=== PATIENT | female | born 1985 | race Caucasian/White ===

== ENCOUNTER 2024-09-04 19:26 | Emergency (ER) | payer BC ==
[2024-09-04 19:36] VITALS: TEMP 96.8; O2SAT 99
[2024-09-04] MEDS ORDERED: TORAdol 30 mg Injection ONE (19:56)
[2024-09-04] MEDS ORDERED: Augmentin 875-125 Tablet ONE (19:56)
[2024-09-04] MEDS ORDERED: TYLENOL 325 MG ONE (19:56)
[2024-09-04] MEDS: TYLENOL 325 MG PO ONE (19:57)
[2024-09-04] MEDS: Augmentin 875-125 Tablet PO ONE (19:57)
--- NOTE | 2024-09-04 19:57 | ERPHSYRPT ---
- History of Present Illness Time Seen by Provider: 09/04/24 19:56 Source: patient Exam Limitations: no limitations Patient Subjective Stated Complaint: toothache to back lower tooth and I can't get into a dentist until 09/27/24 Triage Nursing Assessment: Pt ambulated into ER without diff, c/o toothache to lower left back tooth since 08/08/24. Pt cannot get into a dentist until 09/27/24 and did not have insurance until last week. Dental caries noted to left lower back tooth (1 tooth before last tooth). Pt c/o whole left side of mouth hurting at this time. Physician History: 38-year-old female presents to our ED with complaints of dental pain tooth #17. Patient states symptoms started approximately 2 months ago. Patient has not been able to see a dentist due to lack of insurance. Patient acquired insurance last week. She currently has an appointment scheduled for 27 September. Patient states she cannot wait that long. Pain described as an ache that is localized to the left lower molar tooth #17. No trauma no fever no headache no nausea no vomiting. Patient able to tolerate her oral secretions. Symptoms are mild to moderate in intensity. Pain worse with mastication and palpation. Pain improved with rest. Patient otherwise feels well. She voices no other complaints or concerns at this time. Portions of this note were created with voice recognition technology. There may be grammatical, spelling, punctuation or sound alike errors Timing/Duration: week(s) (2 months) Severity: moderate Modifying Factors: Improves With: other (Mastication and percussion to the involved tooth) Associated Symptoms: denies symptoms Allergies/Adverse Reactions: codeine Adverse Reaction (Intermediate, Verified 09/04/24 19:43) Tightness in Chest Hx Tetanus, Diphtheria Vaccination/Date Given: Yes Hx Influenza Vaccination/Date Given: No Hx Pneumococcal Vaccination/Date Given: No Travel Risk - International Travel Have you traveled outside of the country in past 3 weeks: No - Emerging Infectious Disease Are you exhibiting symptoms associated with any current EIDs: No - Review of Systems Constitutional: No Symptoms, No Fever, No Chills Eyes: No Symptoms Ears, Nose, & Throat: No Symptoms Respiratory: No Symptoms, No Cough, No Dyspnea Cardiac: No Symptoms, No Chest Pain, No Edema, No Syncope Abdominal/Gastrointestinal: No Symptoms, No Abdominal Pain, No Nausea, No Vomiting, No Diarrhea Genitourinary Symptoms: No Symptoms, No Dysuria Musculoskeletal: No Symptoms, No Back Pain, No Neck Pain Skin: No Symptoms, No Rash Neurological: No Symptoms, No Dizziness, No Focal Weakness, No Sensory Changes Psychological: No Symptoms Endocrine: No Symptoms Hematologic/Lymphatic: No Symptoms Immunological/Allergic: No Symptoms All Other Systems: Reviewed and Negative - Past Medical History Pertinent Past Medical History: Yes Neurological History: No Pertinent History, Migraines ENT History: No Pertinent History Cardiac History: High Cholesterol Endocrine Medical History: Diabetes Type II - Past Surgical History Past Surgical History: Yes Gastrointestinal: Appendectomy Female Surgical History: Hysterectomy, Dilation & Curettage, Section, Other Other Surgical History: PFO repair x2, ovarian cysts removed, cyst removed x2 to rt wrist - Female History Hx Now: No - Social History Smoking Status: Former smoker Exposure to second hand smoke: No Drug Use: none - Social Determinants of Health Will the patient participate in the screening: Yes Do you worry about a steady place to live?: No Do you have any problems with any of the following?: No known problems In the past 12 months,have you had to go without utilities?: No Transportation Issues: No Has anyone in your support network made you feel unsafe?: No Have you or anyone in your house had to go without enough: No - Nursing Vital Signs Nursing Vital Signs: Initial Vital Signs Temperature 96.8 F 09/04/24 19:35 Pulse Rate 100 H 09/04/24 19:35 Respiratory Rate 17 09/04/24 19:35 Blood Pressure 165/102 09/04/24 19:35 O2 Sat by Pulse Oximetry 99 09/04/24 19:35 Pain Scale Pain Intensity 10 - Physical Exam General Appearance: no apparent distress, alert Eye Exam: PERRL/EOMI, eyes nml inspection Ears, Nose, Throat Exam: normal ENT inspection, pharynx normal, moist mucous membranes, other (Gingiva adjacent to tooth #17 is tender red swollen.) Neck Exam: normal inspection, non-tender, supple, full range of motion Respiratory Exam: normal breath sounds, airway intact, No respiratory distress Gastrointestinal/Abdomen Exam: No tenderness, No mass Back Exam: normal inspection, normal range of motion, No CVA tenderness, No vertebral tenderness Neurologic Exam: alert, oriented x 3, cooperative, normal mood/affect, sensation nml, No motor deficits Skin Exam: normal color, warm, dry, No rash Lymphatic Exam: No adenopathy SpO2 Interpretation: normal SpO2: 99 O2 Delivery: Room Air - Course Nursing assessment & vital signs reviewed: Yes - Progress Progress: improved Progress Note: 38-year-old female presents to emergency department for evaluation of dental pain. Physical exam reveals what appears to be a dental abscess. Patient received a dose of Augmentin and an IM dose of Toradol in our ED. Patient is not concerned with as she had a hysterectomy. Patient reassessed. Pain improved. Vital stable. A prescription for Toradol and Augmentin forwarde d to patient's pharmacy. Patient is allergic to codeine. Patient will follow- up with her dentist as planned. She voices no other complaints or concerns at this time. Portions of this note were created with voice recognition technology. There may be grammatical, spelling, punctuation or sound alike errors Complexity of problem addressed is moderate acute complicated. No critical care time. Complex of data reviewed and analyzed is none. No specialized testing ordered. Diagnosis made based on history and physical exam. Risk of complication and or risk of morbidity/mortality of patient management is moderate. Patient received IM Toradol and Augmentin in our ED. PATIENT ALSO RECEIVED A GRAM OF TYLENOL P.O. A prescription for the same forwarded to patient's pharmacy. Vital stable. Time spent to discharge patient approximately 10 minutes. Plan of care established for shared decision making. No social determinants of health present to impede follow-up. Portions of this note were created with voice recognition technology. There may be grammatical, spelling, punctuation or sound alike errors 09/04/24 19:59 Counseled pt/family regarding: diagnosis, need for follow-up - Departure Departure Disposition: Home Clinical Impression: Dental abscess, Pain, dental Condition: Stable Critical Care Time: No Instructions: Dental Pain (DC), Tooth Abscess (DC) Additional Instructions: Discharge/Care Plan BRANDON ZUNIGA was seen on 09/04/24 in the Emergency Room. The patient was counseled regarding Diagnosis,Lab results, Imaging studies, need for follow up and when to return to the Emergency Room. Prescriptions given: Discharge Note I have spoken with the patient and/or caregivers. I have explained the patient's condition, diagnosis and treatment plan based on the information available to me at this time. I have answered the patient's and/or caregiver's questions and addressed any concerns. The patient and/or caregivers have as good understanding of the patient's diagnosis, condition and treatment plan as can be expected at this point. The vital signs have been stable. The patient's condition is stable and appropriate for discharge from the emergency department. The patient will pursue further outpatient evaluation with the primary care physician or other designated or consulting physician as outlined in the discharge instructions. The patient and/or caregivers are agreeable to this plan of care and follow-up instructions have been explained in detail. The patient and/or caregivers have received these instruction. The patient/and or caregivers are aware that any significant change in condition or worsening of symptoms should prompt an immediate return to this or the closest emergency department or call 911. Prescriptions: Amox Tr/Potass Clav. 875 mg [Augmentin 875-125 Tablet] 875 mg PO BID 7 Days #14 tablet Ketorolac Trometh 10 mg Tab [TORAdol 10 MG TABLET] 10 mg PO TID 5 Days #15 tablet
[2024-09-04] MEDS: TORAdol 30 mg Injection IM ONE (19:58)
[2024-09-04 20:07] VITALS: BP 151/85; PULSE 98; RESP 16
== END 2024-09-04 20:19 | disposition home or self-care (01) ==
LOC: ED 19:26
DX: K04.7 Periapical abscess without sinus (principal); K08.89 Other specified disorders of teeth and supporting structures; E78.5 Hyperlipidemia, unspecified; E11.9 Type 2 diabetes mellitus without complications; Z79.899 Other long term (current) drug therapy
CPT/HCPCS: 96372; 99283; J1885; A9270-GY

== ENCOUNTER 2024-10-15 20:30 | Emergency (ER) | payer BC ==
[2024-10-15 21:06] VITALS: TEMP 97.1
--- NOTE | 2024-10-15 21:26 | ERPHSYRPT ---
- History of Present Illness Time Seen by Provider: 10/15/24 21:20 Source: patient Exam Limitations: no limitations Patient Subjective Stated Complaint: pt states that she has been having chest pain since this morning. pt states she thought it was heart burn and has been e ating [facility] Triage Nursing Assessment: pt ambulated into the er; pt is axo x4; c/o chest pain; pt states 8/10 pain to chest; pt states pain radiates from left shoulder to left neck and chest; clear apical heart tone; clear lung sounds in all lobes; strong arnie radial pulses; strong arnie pedal pulses; hypertensive Timing/Duration: today Severity: mild Associated Symptoms: denies symptoms Allergies/Adverse Reactions: codeine Adverse Reaction (Intermediate, Verified 10/15/24 20:31) Tightness in Chest Home Medications: Amoxicillin 500 mg PO TID 10/15/24 [History] Evolocumab [Repatha Syringe] 1 ml SQ UD 10/15/24 [History] Hydrocodone/Acetaminophen [Hydrocodone-Acetamin 5-325 mg] 1 tab PO TID 10/15/24 [History] Insulin Aspart [Novolog] 1 unit SQ DAILY 10/15/24 [History] Insulin Glargine [Lantus Insulin] 1 unit SQ BID 10/15/24 [History] lisinopriL [Lisinopril] 2.5 mg PO DAILY 10/15/24 [History] Hx Tetanus, Diphtheria Vaccination/Date Given: Yes Hx Influenza Vaccination/Date Given: No Hx Pneumococcal Vaccination/Date Given: No Travel Risk - International Travel Have you traveled outside of the country in past 3 weeks: No - Emerging Infectious Disease Are you exhibiting symptoms associated with any current EIDs: No - Past Medical History Pertinent Past Medical History: Yes Neurological History: No Pertinent History, Migraines ENT History: No Pertinent History Cardiac History: High Cholesterol Endocrine Medical History: Diabetes Type II Psycho-Social History: Anxiety - Past Surgical History Past Surgical History: Yes Gastrointestinal: Appendectomy Female Surgical History: Hysterectomy, Dilation & Curettage, Section, Other Other Surgical History: PFO repair x2, ovarian cysts removed, cyst removed x2 to rt wrist - Female History Hx Now: No - Social History Smoking Status: Former smoker Exposure to second hand smoke: Yes Drug Use: other - Social Determinants of Health Will the patient participate in the screening: Yes Do you worry about a steady place to live?: No Do you have any problems with any of the following?: No known problems In the past 12 months,have you had to go without utilities?: No Transportation Issues: No Has anyone in your support network made you feel unsafe?: No Have you or anyone in your house had to go w/o enough food: No - Nursing Vital Signs Nursing Vital Signs: Initial Vital Signs Temperature 97.1 F 10/15/24 20:36 Pulse Rate 106 H 10/15/24 20:36 Respiratory Rate 20 10/15/24 20:36 Blood Pressure 166/82 10/15/24 20:36 O2 Sat by Pulse Oximetry 98 10/15/24 20:36 Pain Scale Pain Intensity 7 - Physical Exam General Appearance: no apparent distress Eye Exam: PERRL/EOMI Ears, Nose, Throat Exam: normal ENT inspection Respiratory Exam: normal breath sounds Cardiovascular Exam: regular rate/rhythm Gastrointestinal/Abdomen Exam: soft, normal bowel sounds SpO2: 98 Ordered Tests: Active Orders 24 hr Category Date Time Status ABDOMEN AND PELVIS W CONTRAST [CT] Stat Exams 10/15/24 22:44 Completed CHEST 1 VIEW (PORTABLE) Stat Exams 10/15/24 21:26 Taken CHEST WITH CONTRAST [CT] Stat Exams 10/15/24 22:44 Completed CBC W DIFF Stat Lab 10/15/24 21:42 Completed CMP Stat Lab 10/15/24 21:42 Completed HCG QUALITATIVE, SERUM Stat Lab 10/15/24 22:00 Completed LIPASE Stat Lab 10/15/24 21:42 Completed TROPONIN Q4H Lab 10/15/24 21:42 Completed TROPONIN Q4H Lab 10/16/24 01:32 Received TROPONIN Q4H Lab 10/16/24 05:30 Ordered Lab/Rad Data: Laboratory Result Diagrams 10/15/24 21:42 10/15/24 21:42 Laboratory Results 10/15/24 10/15/24 10/15/24 Range/Units 22:00 21:42 21:42 WBC (3.98-10.04) x10^3/uL RBC (3.93-5.22) x10^6/uL Hgb (11.2-15.7) g/dL Hct (34.1-44.9) % MCV (79.4-94.8) fL MCH (25.6-32.2) pg MCHC (32.2-35.5) g/dL RDW (11.7-14.4) % Plt Count (182-369) x10^3/uL MPV (9.4-12.3) fL Gran % (34.0-71.1) % Immature Gran % (Auto) (0.001-0.429) % Nucleat RBC Rel Count (0.00-0.2) % Eos # (Auto) (0.04-0.36) x10^3/uL Immature Gran # (Auto) (0.001-0.031) x10^3u/L Absolute Lymphs (auto) (1.18-3.74) x10^3/uL Absolute Monos (auto) (0.24-0.86) x10^3/uL Absolute Nucleated RBC (0.00-0.012) x10^3u/L Lymphocytes % (19.3-51.7) % Monocytes % (4.7-12.5) % Eosinophils % (0.7-5.8) % Basophils % (0.1-1.2) % Absolute Granulocytes (1.56-6.13) x10^3/uL Basophils # (0.01-0.08) x10^3/uL Sodium 136 (135-145) mmol/L Potassium 4.0 (3.5-5.1) mmol/L Chloride 104 (98-107) mmol/L Carbon Dioxide 20 L (22-30) mmol/L Anion Gap 15.6 H (5-15) MEQ/L BUN 11 (7-17) mg/dL Creatinine 0.58 (0.52-1.04) mg/dL Estimated GFR 118.0 ML/MIN Glucose 224 H (74-106) mg/dL Calcium 8.9 (8.4-10.2) mg/dL Total Bilirubin 0.60 (0.2-1.3) mg/dL AST 30 (14-36) U/L ALT 29 (0-35) U/L Alkaline Phosphatase 89 (38-126) U/L Troponin I < 0.012 (0.000-0.033) ng/mL Serum Total Protein 6.4 (6.3-8.2) g/dL Albumin 3.8 (3.5-5.0) g/dL Lipase 507 H (23-300) U/L Serum HCG, Qual NEGATIVE (NEGATIVE) 10/15/24 Range/Units 21:42 WBC 9.5 (3.98-10.04) x10^3/uL RBC 4.63 (3.93-5.22) x10^6/uL Hgb 13.8 (11.2-15.7) g/dL Hct 38.7 (34.1-44.9) % MCV 83.6 (79.4-94.8) fL MCH 29.8 (25.6-32.2) pg MCHC 35.7 H (32.2-35.5) g/dL RDW 13.1 (11.7-14.4) % Plt Count 257 (182-369) x10^3/uL MPV 9.3 L (9.4-12.3) fL Gran % 59.3 (34.0-71.1) % Immature Gran % (Auto) 0.2 (0.001-0.429) % Nucleat RBC Rel Count 0.0 (0.00-0.2) % Eos # (Auto) 0.07 (0.04-0.36) x10^3/uL Immature Gran # (Auto) 0.02 (0.001-0.031) x10^3u/L Absolute Lymphs (auto) 3.35 (1.18-3.74) x10^3/uL Absolute Monos (auto) 0.39 (0.24-0.86) x10^3/uL Absolute Nucleated RBC 0.00 (0.00-0.012) x10^3u/L Lymphocytes % 35.4 (19.3-51.7) % Monocytes % 4.1 L (4.7-12.5) % Eosinophils % 0.7 (0.7-5.8) % Basophils % 0.3 (0.1-1.2) % Absolute Granulocytes 5.60 (1.56-6.13) x10^3/uL Basophils # 0.03 (0.01-0.08) x10^3/uL Sodium (135-145) mmol/L Potassium (3.5-5.1) mmol/L Chloride (98-107) mmol/L Carbon Dioxide (22-30) mmol/L Anion Gap (5-15) MEQ/L BUN (7-17) mg/dL Creatinine (0.52-1.04) mg/dL Estimated GFR ML/MIN Glucose (74-106) mg/dL Calcium (8.4-10.2) mg/dL Total Bilirubin (0.2-1.3) mg/dL AST (14-36) U/L ALT (0-35) U/L Alkaline Phosphatase (38-126) U/L Troponin I (0.000-0.033) ng/mL Serum Total Protein (6.3-8.2) g/dL Albumin (3.5-5.0) g/dL Lipase (23-300) U/L Serum HCG, Qual (NEGATIVE) - Progress Progress Note: Patient was seen and evaluated for chest pain labs were obtained chest x-ray was ordered her lipase is elevated at 507 CT of the chest abdomen pelvis will be ordered patient has no further questions at this time, she was updated with the results of the labs and current plan 10/15/24 22:46 10/16/24 01:39 Patient was updated with her results she is still complaining of nonspecific chest discomfort CT chest was obtained CT abdomen pelvis was obtained this revealed ct chest reveals no acute pathology ct abdomen and pelvis reveals IMPRESSION: No evidence of acute intra-abdominal pathology. Clinical correlation is recommended for further evaluation. No radiologic evidence of acute pancreatitis. Right ovarian cyst for ultrasound correlation. Patient was updated with the results she was informed of the need for follow-up with her primary care provider she was informed of the need to start a clear liquid diet and advance slowly he has no chest pain at the time of discharge She was informed of the need for outpatient pelvic ultrasound . Medical Desision Making - Discussion of managment Agreed on:: need for follow-up Will see patient: In office - Departure Departure Disposition: Home Clinical Impression: Chest pain, Acute pancreatitis, Ovarian cyst Condition: Stable Critical Care Time: No Referrals: JANNY PEREIRA MD [Primary Care Provider] - Follow up/PCP as directed
[2024-10-15 21:44] LABS: BASOPHIL % 0.3 % (0.1-1.2); Basophil (Absolute #) 0.03 x10^3/uL (0.01-0.08); Eosinophil % 0.7 % (0.7-5.8); Eosinophil (Absolute #) 0.07 x10^3/uL (0.04-0.36); Hematocrit 38.7 % (34.1-44.9); Hemoglobin 13.8 g/dL (11.2-15.7); IMMATURE GRAN # 0.02 x10^3u/L (0.001-0.031); IMMATURE GRAN % 0.2 % (0.001-0.429); Lymphocyte (Absolute #) 3.35 x10^3/uL (1.18-3.74); Lymphocytes % 35.4 % (19.3-51.7); Mean Cell Volume 83.6 fL (79.4-94.8); Mean Corpuscular Hemoglobin 29.8 pg (25.6-32.2); Mean Corpuscular Hgb Concent. 35.7 g/dL (32.2-35.5); Mean Platelet Volume 9.3 fL (9.4-12.3); Monocyte (Absolute #) 0.39 x10^3/uL (0.24-0.86); Monocytes % 4.1 % (4.7-12.5); Neutrophil % 59.3 % (34.0-71.1); Platelet Count 257 x10^3/uL (182-369); Red Blood Count 4.63 x10^6/uL (3.93-5.22); Red Cell Distribution Width 13.1 % (11.7-14.4); White Blood Count 9.5 x10^3/uL (3.98-10.04)
[2024-10-15 22:02] LABS: ALBUMIN 3.8 g/dL (3.5-5.0); ANION GAP 15.6 MEQ/L (5-15); BILIRUBIN,TOTAL 0.6 mg/dL (0.2-1.3); Calcium 8.9 mg/dL (8.4-10.2); Creatinine 1 0.58 mg/dL (0.52-1.04); Total Protein 6.4 g/dL (6.3-8.2)
[2024-10-15 22:56] LABS: HCG SERUM TEST NEGATIVE (NEGATIVE)
--- NOTE | 2024-10-16 01:00 | XRAY ---
CLINICAL HISTORY: abdominal pain r/o pancreatitis COMPARISON: No prior studies are available for comparison. TECHNIQUE: CT of the abdomen and pelvis was performed with contrast, with the following protocol: axial images with, and reconstructed coronal and sagittal images. One of the following dose reduction techniques was utilized for this exam: Automated exposure control, adjustment of the mA and/or kV according to patient size, and use of iterative reconstruction. FINDINGS: Abdomen: Liver: Normal in size, shape, and density. [place] liver tail(normal variant) is noted. No focal lesions, cysts, or masses were identified. Hepatic vasculature and biliary ducts are unremarkable. Gallbladder and Biliary System: The gallbladder is contracted at the time of the scan. No pericholecystic fluid or gallstones were identified. The common bile duct is normal in caliber without dilation. Pancreas: Pancreatic head, body, and tail are visualized and appear normal in size and density. No pancreatic masses or calcifications were noted. The pancreatic duct is not dilated. Spleen: Normal in size, shape, and density. No splenic lesions or masses were identified. Appendix: The appendix is not well visualized. Kidneys and Adrenal Glands: Both kidneys are normal in size, shape, and position. Cortical thickness is within normal limits. No renal calculi or hydronephrosis. Adrenal glands are unremarkable with no evidence of masses or hyperplasia. Pelvis: Urinary Bladder: Normal in contour and wall thickness. No intraluminal lesions were identified. Uterus: Normal in size and contour. No masses or abnormal thickening. Ovaries: A Right ovarian cyst measures 3.7 x 3 cm. No other gross abnormalities were noted. Vagina: Normal in contour and wall thickness. Cervix: No evidence of mass or abnormal thickening. Peritoneal and Retroperitoneal Structures: No free fluid or abnormal fluid collections were identified within the abdomen or pelvis. No lymphadenopathy was noted. Bowel: The visualized bowel loops are normal in caliber and appearance. No evidence of bowel obstruction or wall thickening. Bones and Soft Tissues: Pelvic bones and soft tissues are unremarkable. No fractures or abnormal masses were identified. IMPRESSION: No evidence of acute intra-abdominal pathology. Clinical correlation is recommended for further evaluation. No radiologic evidence of acute pancreatitis. Right ovarian cyst for ultrasound correlation. Electronically Signed by: Angela Ross MD. (10/16/2024 00:56:38 EDT)
--- NOTE | 2024-10-16 01:02 | XRAY ---
CLINICAL HISTORY: abdominal pain r/o pancreatitis COMPARISON: None TECHNIQUE: Contiguous 3.[address] images of the chest were acquired without intravenous contrast administration. Coronal and sagittal reconstructions were also obtained.One of the following dose reduction techniques was utilized for this exam.Automated exposure control, adjustment of the mA and/or kV according to patient size, and use of iterative reconstruction. FINDINGS: Both lungs are normally visualized. No consolidation or soft tissue nodularity was seen on either side. No bronchiectasis or mucus plugging was noted. No free or encysted pleural effusion. Heart size is normal, no pericardial effusion. No pathologically enlarged mediastinal, hilar, or axillary lymph node was identified. The great mediastinal vessels are normally opacified with contrast. No evidence of pulmonary embolism on current examination. There is no definite mass lesion in the chest wall. The visualized skeleton shows mild degenerative changes. Please refer to the CT abdomen for visceral details. IMPRESSION: No acute pulmonary pathology is identified. Electronically Signed by: Angela Ross MD. (10/16/2024 00:57:44 EDT)
[2024-10-16 01:39] VITALS: BP 100/75; PULSE 100; RESP 19
[2024-10-16 01:42] VITALS: O2SAT 98
--- NOTE | 2024-10-16 08:45 | XRAY ---
Indication: Chest pain. Comparison: None Portable chest inflated and clear. Heart not enlarged. Bony thorax intact. No acute findings.
== END 2024-10-16 02:03 | disposition home or self-care (01) ==
LOC: ED 20:30
DX: R07.9 Chest pain, unspecified (principal); K85.90 Acute pancreatitis without necrosis or infection, unspecified; N83.201 Unspecified ovarian cyst, right side; E78.5 Hyperlipidemia, unspecified; E11.9 Type 2 diabetes mellitus without complications; Z79.4 Long term (current) use of insulin; Z79.891 Long term (current) use of opiate analgesic; Z79.899 Other long term (current) drug therapy
CPT/HCPCS: 36415; 71045; 71260; 74177; 80053; 83690; 84484; 84703; 85025; 99284; 99285

== ENCOUNTER 2024-12-15 17:21 | Emergency (ER) | payer BC ==
[2024-12-15 17:34] VITALS: TEMP 98.8
--- NOTE | 2024-12-15 17:55 | ERPHSYRPT ---
- History of Present Illness Historian: patient Exam Limitations: no limitations Patient Subjective Stated Complaint: Pt states "It has been going on and off for the past two months but it started three days ago and will not stop. I feel like everything is being pushed up into my chest and I have this band around my lower chest upper belly and I am just being squeezed and I cannot breath." Triage Nursing Assessment: Pt presented alert and oriented X 3, skin pwd. Pt ambulates with an upright steady gait, able to speak in clear full sentences PT restting on bed unable to sit still. Physician History: Patient has abdominal pain. It is in her upper abdomen. It radiates to her back and she says down her abdomen a little bit down the back. She has a history of pancreatitis. She says deep breathing makes it worse and coughing and sneezing makes it worse as does walking. Pains been there for about 2 months it has becoming more intense over the last 2 to 3 days. She came in today because of the worsening of the symptoms. She does not have any vomiting at this time but does have some nausea. She is worried it may be her pancreas. She has had problems with pancreatitis in the past.The pain is distributed in the region of the diaphragm as well. Allergies/Adverse Reactions: codeine Adverse Reaction (Intermediate, Verified 10/15/24 20:31) Tightness in Chest Home Medications: Dapagliflozin Propanediol [Farxiga] 5 mg PO DAILY 12/15/24 [History] Evolocumab [Repatha Sureclick] 140 mg SQ DAILY 12/15/24 [History] Glucagon [Gvoke Hypopen 1-Pack] 12/15/24 [History] Insulin Glargine,Hum.rec.anlog [Touromina Solostar] 300 unit SQ DAILY 12/15/24 [History] Tirzepatide [Mounjaro] 2.5 mg SQ DAILY 12/15/24 [History] Hx Tetanus, Diphtheria Vaccination/Date Given: Yes Hx Influenza Vaccination/Date Given: No Hx Pneumococcal Vaccination/Date Given: No Immunizations Up to Date: No Travel Risk - International Travel Have you traveled outside of the country in past 3 weeks: No - Emerging Infectious Disease Are you exhibiting symptoms associated with any current EIDs: No - Review of Systems Constitutional: No Symptoms Eyes: No Symptoms Ears, Nose, & Throat: No Symptoms Respiratory: No Symptoms Cardiac: No Symptoms Abdominal/Gastrointestinal: Abdominal Pain Genitourinary Symptoms: No Symptoms Musculoskeletal: No Symptoms All Other Systems: Reviewed and Negative - Past Medical History Pertinent Past Medical History: Yes Neurological History: Migraines ENT History: No Pertinent History Cardiac History: High Cholesterol Endocrine Medical History: Diabetes Type II Psycho-Social History: Anxiety - Past Surgical History Past Surgical History: Yes Gastrointestinal: Appendectomy Female Surgical History: Hysterectomy, Dilation & Curettage, Section, Other Other Surgical History: PFO repair x2, ovarian cysts removed, cyst removed x2 to rt wrist - Female History Hx Last Menstrual Period: partial hysterectomy Hx Now: No - Social History Smoking Status: Former smoker Exposure to second hand smoke: Yes Drug Use: none - Social Determinants of Health Will the patient participate in the screening: Yes Do you worry about a steady place to live?: No Do you have any problems with any of the following?: No known problems In the past 12 months,have you had to go without utilities?: No Transportation Issues: No Has anyone in your support network made you feel unsafe?: No Have you or anyone in your house had to go w/o enough food: No - Nursing Vital Signs Nursing Vital Signs: Initial Vital Signs Temperature 98.8 F 12/15/24 17:29 Pulse Rate 96 H 12/15/24 17:29 Respiratory Rate 18 12/15/24 17:29 Blood Pressure 142/95 12/15/24 17:29 O2 Sat by Pulse Oximetry 99 12/15/24 17:29 Pain Scale Pain Intensity 10 - Physical Exam General Appearance: no apparent distress Eye Exam: PERRL/EOMI Respiratory Exam: normal breath sounds Cardiovascular Exam: regular rate/rhythm Gastrointestinal/Abdomen Exam: soft, tenderness (Mild tenderness in the upper abdomen otherwise benign exam) Pelvic Exam: not done Rectal Exam: deferred Back Exam: normal inspection Extremity Exam: normal inspection Neurologic Exam: alert, oriented x 3, cooperative Skin Exam: normal color, warm, dry SpO2: 99 - Course Nursing assessment & vital signs reviewed: Yes Ordered Tests: Active Orders 24 hr Category Date Time Status ABDOMEN AND PELVIS W CONTRAST [CT] Stat Exams 12/15/24 17:40 Taken CBC W DIFF Stat Lab 12/15/24 17:55 Completed CMP Stat Lab 12/15/24 17:55 Completed LIPASE Stat Lab 12/15/24 17:55 Completed Medication Summary Discontinued Medications Generic Name Dose Route Start Last Admin Trade Name Yvan PRN Reason Stop Dose Admin Hydromorphone HCl 1 mg 12/15/24 19:14 12/15/24 19:19 Hydromorphone 1 Mg/1ml Inj IV 12/15/24 19:15 Not Given STAT ONE Ketorolac Tromethamine 30 mg 12/15/24 19:19 12/15/24 19:21 Ketorolac Tromethamine 30 Mg/Ml Inj IV 12/15/24 19:20 30 mg STAT ONE Administration Ketorolac Tromethamine Confirm 12/15/24 19:20 Ketorolac Tromethamine 30 Mg/Ml Inj Administered 12/15/24 19:21 Dose 30 mg .ROUTE .STK-MED ONE Ondansetron HCl 4 mg 12/15/24 19:14 12/15/24 19:21 Ondansetron Hcl 4 Mg/2 Ml Vial IV 12/15/24 19:15 4 mg STAT ONE Administration Ondansetron HCl Confirm 12/15/24 19:20 Ondansetron Hcl 4 Mg/2 Ml Vial Administered 12/15/24 19:21 Dose 4 mg .ROUTE .STK-MED ONE Lab/Rad Data: Laboratory Result Diagrams 12/15/24 17:55 12/15/24 17:55 Laboratory Results 12/15/24 12/15/24 Range/Units 17:55 17:55 WBC 10.5 H (3.98-10.04) x10^3/uL RBC 4.72 (3.93-5.22) x10^6/uL Hgb 13.8 (11.2-15.7) g/dL Hct 39.9 (34.1-44.9) % MCV 84.5 (79.4-94.8) fL MCH 29.2 (25.6-32.2) pg MCHC 34.6 (32.2-35.5) g/dL RDW 12.5 (11.7-14.4) % Plt Count 238 (182-369) x10^3/uL MPV 8.8 L (9.4-12.3) fL Gran % 61.0 (34.0-71.1) % Immature Gran % (Auto) 0.3 (0.001-0.429) % Nucleat RBC Rel Count 0.0 (0.00-0.2) % Eos # (Auto) 0.11 (0.04-0.36) x10^3/uL Immature Gran # (Auto) 0.03 (0.001-0.031) x10^3u/L Absolute Lymphs (auto) 3.41 (1.18-3.74) x10^3/uL Absolute Monos (auto) 0.50 (0.24-0.86) x10^3/uL Absolute Nucleated RBC 0.00 (0.00-0.012) x10^3u/L Lymphocytes % 32.5 (19.3-51.7) % Monocytes % 4.8 (4.7-12.5) % Eosinophils % 1.0 (0.7-5.8) % Basophils % 0.4 (0.1-1.2) % Absolute Granulocytes 6.39 H (1.56-6.13) x10^3/uL Basophils # 0.04 (0.01-0.08) x10^3/uL Sodium 140 (135-145) mmol/L Potassium 3.6 (3.5-5.1) mmol/L Chloride 107 (98-107) mmol/L Carbon Dioxide 22 (22-30) mmol/L Anion Gap 15.7 H (5-15) MEQ/L BUN 16 (7-17) mg/dL Creatinine 0.64 (0.52-1.04) mg/dL Estimated GFR 114.5 ML/MIN Glucose 99 (74-106) mg/dL Calcium 9.9 (8.4-10.2) mg/dL Total Bilirubin 0.70 (0.2-1.3) mg/dL AST 37 H (14-36) U/L ALT 36 H (0-35) U/L Alkaline Phosphatase 79 (38-126) U/L Serum Total Protein 7.3 (6.3-8.2) g/dL Albumin 4.4 (3.5-5.0) g/dL Lipase 277 (23-300) U/L - Progress Progress: unchanged Progress Note: On the differential is pancreatitis, inflammation of the diaphragm, colitis,. Her CT showed no acute findings. Her labs all look good. At this point I do not think that further workup to be done in the ER. I am going to have her follow-up with her primary doctor and possible GI referral. I am going to give her some [place] for the next few days. 12/15/24 20:56 Medical Desision Making - Independent Historian Additional History obtained from: Spouse - Departure Departure Disposition: Home Clinical Impression: Abdominal pain Condition: Stable Critical Care Time: No Referrals: JANNY PEREIRA MD [Primary Care Provider, [facility]] - Follow up/PCP as directed Instructions: Severe Abdominal Pain, Adult (DC)
[2024-12-15 18:00] LABS: Absolute Neutrophil Ct (ANC) 6.39 x10^3/uL (1.56-6.13); BASOPHIL % 0.4 % (0.1-1.2); Basophil (Absolute #) 0.04 x10^3/uL (0.01-0.08); Eosinophil (Absolute #) 0.11 x10^3/uL (0.04-0.36); Hematocrit 39.9 % (34.1-44.9); Hemoglobin 13.8 g/dL (11.2-15.7); IMMATURE GRAN # 0.03 x10^3u/L (0.001-0.031); IMMATURE GRAN % 0.3 % (0.001-0.429); Lymphocyte (Absolute #) 3.41 x10^3/uL (1.18-3.74); Lymphocytes % 32.5 % (19.3-51.7); Mean Cell Volume 84.5 fL (79.4-94.8); Mean Corpuscular Hemoglobin 29.2 pg (25.6-32.2); Mean Corpuscular Hgb Concent. 34.6 g/dL (32.2-35.5); Mean Platelet Volume 8.8 fL (9.4-12.3); Monocytes % 4.8 % (4.7-12.5); Platelet Count 238 x10^3/uL (182-369); Red Blood Count 4.72 x10^6/uL (3.93-5.22); Red Cell Distribution Width 12.5 % (11.7-14.4); White Blood Count 10.5 x10^3/uL (3.98-10.04)
[2024-12-15 18:17] LABS: ALBUMIN 4.4 g/dL (3.5-5.0); ANION GAP 15.7 MEQ/L (5-15); BILIRUBIN,TOTAL 0.7 mg/dL (0.2-1.3); Calcium 9.9 mg/dL (8.4-10.2); Creatinine 1 0.64 mg/dL (0.52-1.04); EST GLOMERULAR FILTRATION RATE 114.5 ML/MIN; Potassium 3.6 mmol/L (3.5-5.1); Total Protein 7.3 g/dL (6.3-8.2)
[2024-12-15] MEDS: Hydromorphone 1 mg/ml Injection IV ONE (19:19)
[2024-12-15] MEDS ORDERED: Zofran 4 MG/2 ML VIAL ONE (19:20)
[2024-12-15] MEDS ORDERED: TORAdol 30 mg Injection ONE (19:20)
[2024-12-15] MEDS: Zofran 4 MG/2 ML VIAL IV ONE (19:21)
[2024-12-15] MEDS: TORAdol 30 mg Injection IV ONE (19:21)
[2024-12-15] MEDS ORDERED: NORCO 5/325 MG ONE (21:01)
[2024-12-15] MEDS: NORCO 5/325 MG PO ONE (21:02)
[2024-12-15 21:07] VITALS: BP 119/66; PULSE 82; RESP 12; O2SAT 98
--- NOTE | 2024-12-15 22:08 | XRAY ---
Indication: Abdomen pain. Multiple contiguous axial images obtained through the abdomen and pelvis using 80 cc Isovue 370 contrast. Comparison: October 15, 2024 Lung bases clear. Heart not enlarged. Noncontrasted stomach and bowel loops appear nonobstructed. Again appendectomy and hysterectomy reported. Both kidneys enhance and excrete. No free fluid/air. Remaining liver, gallbladder, pancreas, spleen, adrenal glands, kidneys, ureters, bladder, and aorta are normal in CT appearance and attenuation. No pathologic retroperitoneal lymphadenopathy. Osseous structures intact. Impression: Again normal CT abdomen/pelvis with contrast exam.
== END 2024-12-15 21:16 | disposition home or self-care (01) ==
LOC: ED 17:21
DX: R10.9 Unspecified abdominal pain (principal); Z79.899 Other long term (current) drug therapy
CPT/HCPCS: 36415; 74177; 80053; 83690; 85025; 93005; 96374; 96375; 99284; 99285; J1885; J2405; A9270-GY

== ENCOUNTER 2024-12-16 18:16 | Emergency (ER) | payer BC ==
--- NOTE | 2024-12-16 18:23 | ERPHSYRPT ---
- History of Present Illness Time Seen by Provider: 12/16/24 18:23 Source: patient Exam Limitations: no limitations Physician History: This is an overweight 39-year-old white female patient of Dr. Pereira who presents with left upper quadrant, left lower rib pain and arrives by private vehicle. Patient was seen here in this emergency department on 12/15/2024, approximately 24 hours ago. I reviewed that the entire emergency department visit including review of the patient's CT scan of abdomen pelvis with contrast results, and the laboratory workup results. Patient has a history of migraine headaches, anxiety, hyperlipidemia and diabetes. Patient has been using Renick 5/325 and was given 12 tablets and she has used 3 per her report. She also has been using ibuprofen which she states the combination is not helping much. The pain has been present for 4 days. The entire workup that was done yesterday through this emergency department was negative/normal. There has been no injury to this area per her report. Patient did admit that her writing lawn more/tractor quit working and she and her has been using a push mower to mow the grass on their large property. She is wondering if this is contributing to her pain. Severity: moderate Modifying Factors: Improves With: movement (Since) Associated Symptoms: abdominal pain (Left upper quadrant), No shortness of breath, No chest pain Allergies/Adverse Reactions: codeine Adverse Reaction (Intermediate, Verified 12/16/24 18:41) Tightness in Chest Home Medications: Dapagliflozin Propanediol [Farxiga] 5 mg PO DAILY 12/15/24 [History] Evolocumab [Repatha Sureclick] 140 mg SQ DAILY 12/15/24 [History] Glucagon [Gvoke Hypopen 1-Pack] 1 mg SQ DAILY PRN 12/15/24 [History] Insulin Glargine,Hum.rec.anlog [Toujeo Solostar] 300 unit SQ DAILY 12/15/24 [History] Tirzepatide [Mounjaro] 2.5 mg SQ DAILY 12/15/24 [History] Hx Tetanus, Diphtheria Vaccination/Date Given: Yes Hx Influenza Vaccination/Date Given: No Hx Pneumococcal Vaccination/Date Given: No Travel Risk - International Travel Have you traveled outside of the country in past 3 weeks: No - Emerging Infectious Disease Are you exhibiting symptoms associated with any current EIDs: No - Review of Systems Constitutional: No Symptoms Eyes: No Symptoms Ears, Nose, & Throat: No Symptoms Respiratory: No Symptoms Cardiac: No Symptoms Abdominal/Gastrointestinal: Abdominal Pain (Left upper quadrant/left lower rib pain) Genitourinary Symptoms: No Symptoms Musculoskeletal: No Injury Skin: No Symptoms Neurological: No Symptoms Psychological: No Symptoms Endocrine: No Symptoms Hematologic/Lymphatic: No Symptoms Immunological/Allergic: No Symptoms All Other Systems: Reviewed and Negative - Past Medical History Pertinent Past Medical History: Yes Neurological History: Migraines ENT History: No Pertinent History Cardiac History: High Cholesterol Endocrine Medical History: Diabetes Type II Psycho-Social History: Anxiety - Past Surgical History Past Surgical History: Yes Gastrointestinal: Appendectomy Female Surgical History: Hysterectomy, Dilation & Curettage, Section, Other Other Surgical History: PFO repair x2, ovarian cysts removed, cyst removed x2 to rt wrist - Female History Hx Last Menstrual Period: partial hysterectomy - Social History Smoking Status: Former smoker Exposure to second hand smoke: Yes Drug Use: none - Social Determinants of Health Will the patient participate in the screening: Yes Do you worry about a steady place to live?: No In the past 12 months,have you had to go without utilities?: No Transportation Issues: No Has anyone in your support network made you feel unsafe?: No Have you or anyone in your house had to go w/o enough food: No - Nursing Vital Signs Nursing Vital Signs: Initial Vital Signs Pulse Rate 86 12/16/24 18:32 Respiratory Rate 15 12/16/24 18:32 Blood Pressure 131/87 12/16/24 18:32 O2 Sat by Pulse Oximetry 99 12/16/24 18:32 Pain Scale Pain Intensity 4 - Physical Exam General Appearance: no apparent distress, alert, anxiety, obese Eye Exam: PERRL/EOMI, eyes nml inspection Ears, Nose, Throat Exam: normal ENT inspection, moist mucous membranes Neck Exam: normal inspection, non-tender, supple, full range of motion Respiratory Exam: normal breath sounds, lungs clear, airway intact, No chest tenderness, No respiratory distress Cardiovascular Exam: regular rate/rhythm, normal heart sounds, normal peripheral pulses Gastrointestinal/Abdomen Exam: soft, normal bowel sounds, tenderness (Left upper quadrant rib margin to palpation) Pelvic Exam: not done Rectal Exam: not done Back Exam: normal inspection, normal range of motion, No CVA tenderness, No vertebral tenderness Extremity Exam: normal inspection, normal range of motion, pelvis stable Neurologic Exam: alert, oriented x 3, cooperative, 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 No acute ischemia on today's twelve-lead EKG) Ordered Tests: Active Orders 24 hr Category Date Time Status EKG-ER Only STAT Care 12/16/24 18:53 Active IV Insertion STAT Care 12/16/24 18:53 Active CHEST WITHOUT CONTRAST [CT] Stat Exams 12/16/24 19:44 Completed BMP Stat Lab 12/16/24 18:50 Completed CBC W DIFF Stat Lab 12/16/24 18:50 Completed D-DIMER QUANTITATIVE Stat Lab 12/16/24 18:50 Completed TROPONIN Q4H Lab 12/16/24 18:50 Completed TROPONIN Q4H Lab 12/16/24 23:00 Ordered TROPONIN Q4H Lab 12/17/24 03:00 Ordered Medication Summary Discontinued Medications Generic Name Dose Route Start Last Admin Trade Name Freq PRN Reason Stop Dose Admin Hydromorphone HCl 1 mg 12/16/24 18:53 12/16/24 19:14 Hydromorphone 1 Mg/1ml Inj IV 12/16/24 18:54 1 mg STAT ONE Administration Hydromorphone HCl Confirm 12/16/24 19:08 Hydromorphone 1 Mg/1ml Inj Administered 12/16/24 19:09 Dose 1 mg .ROUTE .STK-MED ONE Ketorolac Tromethamine 30 mg 12/16/24 18:53 12/16/24 19:12 Ketorolac Tromethamine 30 Mg/Ml Inj IV 12/16/24 18:54 30 mg STAT ONE Administration Ketorolac Tromethamine Confirm 12/16/24 19:07 Ketorolac Tromethamine 30 Mg/Ml Inj Administered 12/16/24 19:08 Dose 30 mg .ROUTE .STK-MED ONE Ondansetron HCl 4 mg 12/16/24 18:53 12/16/24 19:10 Ondansetron Hcl 4 Mg/2 Ml Vial IV 12/16/24 18:54 4 mg STAT ONE Administration Ondansetron HCl Confirm 12/16/24 19:07 Ondansetron Hcl 4 Mg/2 Ml Vial Administered 12/16/24 19:08 Dose 4 mg .ROUTE .STK-MED ONE Orphenadrine Citrate 60 mg 12/16/24 21:16 12/16/24 21:18 Orphenadrine Citrate 60 Mg/2 Ml Vial IV 12/16/24 21:17 60 mg STAT ONE Administration Orphenadrine Citrate Confirm 12/16/24 21:18 Orphenadrine Citrate 60 Mg/2 Ml Vial Administered 12/16/24 21:19 Dose 60 mg .ROUTE .STK-MED ONE Lab/Rad Data: Laboratory Result Diagrams 12/16/24 18:50 12/16/24 18:50 Laboratory Results 12/16/24 12/16/24 12/16/24 Range/Units 18:50 18:50 18:50 WBC 10.6 H (3.98-10.04) x10^3/uL RBC 4.80 (3.93-5.22) x10^6/uL Hgb 14.1 (11.2-15.7) g/dL Hct 40.5 (34.1-44.9) % MCV 84.4 (79.4-94.8) fL MCH 29.4 (25.6-32.2) pg MCHC 34.8 (32.2-35.5) g/dL RDW 12.5 (11.7-14.4) % Plt Count 228 (182-369) x10^3/uL MPV 8.9 L (9.4-12.3) fL Gran % 66.8 (34.0-71.1) % Immature Gran % (Auto) 0.3 (0.001-0.429) % Nucleat RBC Rel Count 0.0 (0.00-0.2) % Eos # (Auto) 0.14 (0.04-0.36) x10^3/uL Immature Gran # (Auto) 0.03 (0.001-0.031) x10^3u/L Absolute Lymphs (auto) 2.77 (1.18-3.74) x10^3/uL Absolute Monos (auto) 0.54 (0.24-0.86) x10^3/uL Absolute Nucleated RBC 0.00 (0.00-0.012) x10^3u/L Lymphocytes % 26.1 (19.3-51.7) % Monocytes % 5.1 (4.7-12.5) % Eosinophils % 1.3 (0.7-5.8) % Basophils % 0.4 (0.1-1.2) % Absolute Granulocytes 7.08 H (1.56-6.13) x10^3/uL Basophils # 0.04 (0.01-0.08) x10^3/uL D-Dimer (0.0-0.50) mg/L Sodium 139 (135-145) mmol/L Potassium 3.5 (3.5-5.1) mmol/L Chloride 105 (98-107) mmol/L Carbon Dioxide 21 L (22-30) mmol/L Anion Gap 16.2 H (5-15) MEQ/L BUN 12 (7-17) mg/dL Creatinine 0.60 (0.52-1.04) mg/dL Estimated GFR 116.3 ML/MIN Glucose 148 H (74-106) mg/dL Calcium 9.0 (8.4-10.2) mg/dL Troponin I < 0.012 (0.000-0.033) ng/mL 12/16/24 Range/Units 18:50 WBC (3.98-10.04) x10^3/uL RBC (3.93-5.22) x10^6/uL Hgb (11.2-15.7) g/dL Hct (34.1-44.9) % MCV (79.4-94.8) fL MCH (25.6-32.2) pg MCHC (32.2-35.5) g/dL RDW (11.7-14.4) % Plt Count (182-369) x10^3/uL MPV (9.4-12.3) fL Gran % (34.0-71.1) % Immature Gran % (Auto) (0.001-0.429) % Nucleat RBC Rel Count (0.00-0.2) % Eos # (Auto) (0.04-0.36) x10^3/uL Immature Gran # (Auto) (0.001-0.031) x10^3u/L Absolute Lymphs (auto) (1.18-3.74) x10^3/uL Absolute Monos (auto) (0.24-0.86) x10^3/uL Absolute Nucleated RBC (0.00-0.012) x10^3u/L Lymphocytes % (19.3-51.7) % Monocytes % (4.7-12.5) % Eosinophils % (0.7-5.8) % Basophils % (0.1-1.2) % Absolute Granulocytes (1.56-6.13) x10^3/uL Basophils # (0.01-0.08) x10^3/uL D-Dimer < 0.19 (0.0-0.50) mg/L Sodium (135-145) mmol/L Potassium (3.5-5.1) mmol/L Chloride (98-107) mmol/L Carbon Dioxide (22-30) mmol/L Anion Gap (5-15) MEQ/L BUN (7-17) mg/dL Creatinine (0.52-1.04) mg/dL Estimated GFR ML/MIN Glucose (74-106) mg/dL Calcium (8.4-10.2) mg/dL Troponin I (0.000-0.033) ng/mL - Progress Progress: improved, pain not gone completely Progress Note: 12/16/24 19:00 My medical decision making and the assignment of moderate complexity of this patient's medical issue today is based on review of the patient's past medical history, review the patient's medication list, reviewed patient drug allergy list, history present illness and physical findings on examination. The workup in this patient includes placement of a intravenous line, CBC, BMP, D-dimer, troponin level, twelve-lead EKG. If the D-dimer is elevated we will perform a CT scan of the chest with contrast. If the D-dimer is normal/negative, we will perform a CT scan of chest without contrast. Differential diagnosis includes but is not limited to muscle skeletal pain, rib fracture, rib contusion, muscle strain, left lower lobe pneumonia 12/16/24 21:01 I interpreted the patient's laboratory data results. Based on the laboratory data results, there are no acute, emergent medical findings. 12/16/24 21:[address] scan of the chest without contrast was interpreted by the radiologist and I reviewed the impression. The impression states chest wall unremarkable without evidence of soft tissue or bony abnormalities. The visualized osseous structures are normal. There is no evidence of fracture, lytic or sclerotic lesions. There is no evidence of pneumothorax. There is no evidence of rib fractures Counseled pt/family regarding: lab results, diagnosis, need for follow-up, rad results Medical Desision Making - Diagnostic Testing Diagnostic test were ordered, analyzed, and reviewed by me: Yes Radiological Interpretation: Reviewed by me, Teleradiologist Report - Risk of complications Low Risk: Low risk of morbidity from additional dx testing or treatment The pt has a mod risk of morbidity or mortality based on: Need for prescription drug management, Need for minor surgical intervention in patient with know risk factors - Departure Departure Disposition: Home Clinical Impression: Musculoskeletal pain, Rib pain on left side Condition: Stable Critical Care Time: No Referrals: JANNY PEREIRA MD [Primary Care Provider, [facility]] - Follow up/PCP as directed Additional Instructions: Take your ibuprofen, Renick 5/325, and muscle relaxant as prescribed. Call your prescribing provider, 12/18/2024, to make arrangements for follow-up appointment for further evaluation management. Prescriptions: Cyclobenzaprine HCl 10 mg [Flexeril 10 MG] 10 mg PO TID #6 tablet
[2024-12-16 18:41] VITALS: TEMP 98.5
[2024-12-16 18:58] LABS: Absolute Neutrophil Ct (ANC) 7.08 x10^3/uL (1.56-6.13); BASOPHIL % 0.4 % (0.1-1.2); Basophil (Absolute #) 0.04 x10^3/uL (0.01-0.08); Eosinophil % 1.3 % (0.7-5.8); Eosinophil (Absolute #) 0.14 x10^3/uL (0.04-0.36); Hematocrit 40.5 % (34.1-44.9); Hemoglobin 14.1 g/dL (11.2-15.7); IMMATURE GRAN # 0.03 x10^3u/L (0.001-0.031); IMMATURE GRAN % 0.3 % (0.001-0.429); Lymphocyte (Absolute #) 2.77 x10^3/uL (1.18-3.74); Lymphocytes % 26.1 % (19.3-51.7); Mean Cell Volume 84.4 fL (79.4-94.8); Mean Corpuscular Hemoglobin 29.4 pg (25.6-32.2); Mean Corpuscular Hgb Concent. 34.8 g/dL (32.2-35.5); Mean Platelet Volume 8.9 fL (9.4-12.3); Monocyte (Absolute #) 0.54 x10^3/uL (0.24-0.86); Monocytes % 5.1 % (4.7-12.5); Neutrophil % 66.8 % (34.0-71.1); Platelet Count 228 x10^3/uL (182-369); Red Cell Distribution Width 12.5 % (11.7-14.4); White Blood Count 10.6 x10^3/uL (3.98-10.04)
[2024-12-16] MEDS ORDERED: Zofran 4 MG/2 ML VIAL ONE (19:07)
[2024-12-16] MEDS ORDERED: TORAdol 30 mg Injection ONE (19:07)
[2024-12-16] MEDS ORDERED: Hydromorphone 1 mg/ml Injection ONE (19:08)
[2024-12-16] MEDS: Zofran 4 MG/2 ML VIAL IV ONE (19:10)
[2024-12-16] MEDS: TORAdol 30 mg Injection IV ONE (19:12)
[2024-12-16] MEDS: Hydromorphone 1 mg/ml Injection IV ONE (19:14)
[2024-12-16] MEDS ORDERED: Norflex 60 MG/2 ML ONE (21:18)
[2024-12-16] MEDS: Norflex 60 MG/2 ML IV ONE (21:18)
--- NOTE | 2024-12-16 21:35 | XRAY ---
CLINICAL HISTORY: Left lower rib pain COMPARISON: CT chest on 10/15/2024 TECHNIQUE: Contiguous axial CT images of the chest were acquired without administration of intravenous contrast. Coronal and sagittal reconstructions were obtained. One of the following dose reduction techniques were utilized for this exam: Automated exposure control, adjustment of the mA and/or kV according to patient size, use of iterative reconstruction. FINDINGS: Lungs: Bibasilar subpleural reticulation is likely due to the gravitational effect The lung parenchyma is clear with no evidence of consolidation, collapse, or focal lesions. No pulmonary nodules or masses are identified. No evidence of interstitial lung disease or emphysema. No pleural effusion or pleural thickening. Mediastinum: The mediastinum is normal in size and contour. No mediastinal mass or abnormal lymphadenopathy. The heart size is within normal limits. Hilar Structures: The hilar structures appear normal without enlargement or abnormality. Trachea and Main Bronchi: The trachea and main bronchi are patent without evidence of obstruction or abnormality. Chest Wall: The chest wall is unremarkable with no evidence of soft tissue or bony abnormalities. Upper Abdomen: Visualized portions of the liver, spleen, adrenal glands, and kidneys are unremarkable. Bones: Visualized osseous structures are normal, no evidence of fracture or lytic/sclerotic lesions. IMPRESSION: 1. No consolidation, cavitation and pleural effusion. stable. 2. No pneumothorax. 3. No displaced rib fractures are identified. 4. No interval changes compared to the previous study. Electronically Signed by: Angela Ross MD. (12/16/2024 21:32:22 EDT)
[2024-12-16 21:44] VITALS: BP 126/80; PULSE 81; RESP 18; O2SAT 100
== END 2024-12-16 21:51 | disposition home or self-care (01) ==
LOC: ED 18:16
DX: M79.18 Myalgia, other site (principal); R07.81 Pleurodynia; E11.9 Type 2 diabetes mellitus without complications; E78.5 Hyperlipidemia, unspecified; R10.12 Left upper quadrant pain; E78.00 Pure hypercholesterolemia, unspecified; Z79.899 Other long term (current) drug therapy
CPT/HCPCS: 36415; 71250; 84484; 85025; 85379; 93005; 96374; 96375; 99284; 99285; J1171; J1885; J2360; J2405